=== PATIENT | female | born 1985 | race Caucasian/White ===

== ENCOUNTER 2016-12-03 13:01 | Emergency (ER) | payer OTHER ==
[~2016-12-03] VITALS: Ht 165.1 cm; Wt 65.3 kg
[~2016-12-03 13:01] MED LIST: ABILIFY5 MG; AMOXICILLIN500 MG PO; ATORVASTATIN CA40 MG PO; CARBIDOPA/LEVO1 EACH PO; CYCLOBENZAPRINE10 MG PO; CYMBALTA60 MG PO; DULERA 100 MCG/13 GM IH; ENULOSE10 GM/15 M PO; FENTANYL1 EAC1 TD; FENTANYL1 EAC5 TD; FLEXERIL5 MG PO; GLUCOSAMINE HC500 MG PO; GLUCOSAMINE1000 MG PO; HYDROXYZINE HCL25 MG PO; IRON18 MG PO; LINZESS290 MCG PO; LIPITOR40 MG PO; LITHIUM CARBON150 MG PO; LYRICA100 MG PO; LYRICA150 MG PO; METHOCARBAMOL750 MG PO; MIRAPEX0.25 MG PO; NAPROSYN-EC500 MG PO; NAPROSYN500 MG PO; NAPROXEN500 MG PO; NICOTINE PATCH1 EAC2 TD; NOHOMEMEDS; OMEPRAZOLE40 M1 PO; OXYCODONE HCL5 MG PO; PREDNISONE20 MG PO; PROTONIX20 MG PO; QVAR 80 MCG IN7.3 GM IH; REQUIP1 MG PO; REQUIP4 MG PO; ROPINIROLE HCL0.5 MG PO; ROPINIROLE HCL2 MG PO; SINEMET 25-1001 EACH PO; TORADOL10 MG PO; TROKENDI XR100 MG PO; TYLENOL WITH C1 EACH PO; ULTRAM50 MG PO; VALIUM5 MG PO; VENTOLIN HFA18 GM IH; VOLTAREN75 MG PO; ZANTAC150 MG PO; ZITHROMAX250 MG PO
[2016-12-03 14:31] LABS: HEMATOCRIT 41.4 % (36.0-46.0); MCH 29.8 PG (29.0-34.0); MCHC 33.6 G/DL (30.0-36.0); MCV 88.8 FL (83-99); MEAN PLAT.VOLUME 8.5 uM^3 (9.5-12.4); PLATELET COUNT 301 K/uL (156-360); RBC DIS.WIDTH-CV 12.8 % (11.8-14.6); RBC DIS.WIDTH-SD 41.4 % (39-53); RED BLOOD COUNT 4.66 M/uL (3.80-5.20); WHITE BLOOD COUNT 14.4 K/uL (4.1-10.2)
[2016-12-03 14:36] LABS: CHLORIDE 105 mEq/L (99-109); POTASSIUM 4.2 mEq/L (3.7-5.4); SODIUM 138 mEq/L (136-147)
[2016-12-03 14:39] LABS: GLUCOSE 88 mg/dL (70-99)
[2016-12-03 14:40] LABS: ANION GAP 9 MEQ/L (2-14)
[2016-12-03 14:41] LABS: TOTAL BILIRUBIN 0.4 mg/dL (0.0-1.0)
[2016-12-03 14:42] LABS: ALKALINE PHOSPHATASE 75 IU/L (3-129); GFR ESTIMATE (CALCULATED) > 59 mL/min/
[2016-12-03 14:43] LABS: UREA NITROGEN (BUN) 11 mg/dL (9-23)
[2016-12-03 14:45] LABS: CREATINE KINASE 64 IU/L (1-294)
[2016-12-03 15:53] LABS: QUANTITATIVE HCG < 4.0 MIU/ML
[2016-12-03 15:56] LABS: TROP-I INTERPRETATION NEGATIVE; TROPONIN-I < 0.01 ng/mL (0.0-0.30)
[2016-12-03 16:55] LABS: ADD MIUA? YES; BILIRUBIN NEGATIVE; BLOOD NEGATIVE; COLOR YELLOW ((YELLOW)); GLUCOSE (STRIP) NEGATIVE; KETONES NEGATIVE; LEUKOCYTES NEGATIVE; NITRITE NEGATIVE; PROTEIN (STRIP) NEGATIVE; SPECIFIC GRAVITY 1.009 (1.000-1.030); UROBILINOGEN 0.2 MG/DL (0.2-1.0)
[2016-12-03 17:00] LABS: BACTERIA RARE /HPF; EPITHELIAL CELLS 1+ /HPF; HYALINE CASTS 0-5 /LPF; MUCUS 1+ /LPF; RED BLOOD CELLS 0-5 /HPF (0-5); UCUL ADDED? NO; WHITE BLOOD CELLS 0-5 /HPF (0-5)
[2016-12-03 17:50] VITALS: BP 94/65
== END 2016-12-03 17:51 | disposition home or self-care (01) ==
LOC: EME 13:01
PROVIDERS: Nurse Practitioner Family; Physician Assistant
PROC: 08QPXZZ Repair Left Upper Eyelid, External Approach (ICD-10-PCS; principal; 2016-12-03)
DX: R55 Syncope and collapse (principal); S09.90XA Unspecified injury of head, initial encounter; S01.112A Laceration without foreign body of left eyelid and periocular area, initial encounter; W19.XXXA Unspecified fall, initial encounter; Y92.512 Supermarket, store or market as the place of occurrence of the external cause; F17.200 Nicotine dependence, unspecified, uncomplicated; Z88.5 Allergy status to narcotic agent; Z91.048 Other nonmedicinal substance allergy status; Z88.8 Allergy status to other drugs, medicaments and biological substances; J44.9 Chronic obstructive pulmonary disease, unspecified
CPT/HCPCS: 70450; 71020; 80053; 81003; 82550; 84484; 84702; 85027; 93005; 99281; 99285; J7030

== ENCOUNTER 2017-08-15 09:32 | Emergency (ER) | payer SELFPAY ==
[~2017-08-15] VITALS: Ht 165.1 cm; Wt 57.9 kg
[2017-08-15 10:33] LABS: HEMOGLOBIN 14.7 G/DL (11.9-15.5); MCH 31.1 PG (29.0-34.0); MCV 88.8 FL (83-99); PLATELET COUNT 275 K/uL (156-360); RBC DIS.WIDTH-CV 11.7 % (11.8-14.6); RBC DIS.WIDTH-SD 37.4 % (39-53); RED BLOOD COUNT 4.73 M/uL (3.80-5.20); WHITE BLOOD COUNT 10.3 K/uL (4.1-10.2)
[2017-08-15 10:43] LABS: ALBUMIN 4.3 g/dL (3.2-4.8); CHLORIDE 105 mEq/L (99-109); POTASSIUM 4.6 mEq/L (3.7-5.4); SODIUM 136 mEq/L (136-147)
[2017-08-15 10:45] LABS: GLUCOSE 111 mg/dL (70-99)
[2017-08-15 10:46] LABS: TOTAL PROTEIN 7.1 g/dL (6.4-8.3)
[2017-08-15 10:47] LABS: TOTAL BILIRUBIN 0.5 mg/dL (0.0-1.0)
[2017-08-15 10:49] LABS: ALKALINE PHOSPHATASE 76 IU/L (3-129); CREATININE 0.9 mg/dL (0.6-1.3); GFR ESTIMATE (CALCULATED) > 59 mL/min/
[2017-08-15 10:50] LABS: UREA NITROGEN (BUN) 18 mg/dL (9-23)
[2017-08-15 10:51] LABS: AST (GOT) 14 IU/L (2-34)
[2017-08-15 10:52] LABS: ALT (GPT) 7 IU/L (3-49)
[2017-08-15 10:58] LABS: QUANTITATIVE HCG < 4.0 MIU/ML
[2017-08-15] MEDS ORDERED: OXYCODONE-ACET1 EACH PO (11:15)
[2017-08-15] MEDS ORDERED: CYCLOBENZAPRINE10 MG PO (11:16)
[2017-08-15 13:02] LABS: APPEARANCE SL.HAZY ((CLEAR)); BILIRUBIN NEGATIVE; BLOOD LARGE; COLOR YELLOW ((YELLOW)); GLUCOSE (STRIP) NEGATIVE; KETONES 20; LEUKOCYTES NEGATIVE; NITRITE NEGATIVE; PROTEIN (STRIP) 30; SPECIFIC GRAVITY 1.029 (1.000-1.030); UROBILINOGEN 0.2 MG/DL (0.2-1.0)
[2017-08-15 13:07] LABS: BACTERIA RARE /HPF; EPITHELIAL CELLS RARE /HPF; HYALINE CASTS 0-5 /LPF; MUCUS TRACE /LPF; RED BLOOD CELLS TNTC /HPF (0-5); UCUL ADDED? YES; WHITE BLOOD CELLS 0-5 /HPF (0-5)
[2017-08-15] MEDS ORDERED: TORADOL10 MG PO (14:20)
[2017-08-15] MEDS ORDERED: FLOMAX0.4 MG PO (14:20)
[2017-08-15] MEDS ORDERED: ZOFRAN ODT4 MG PO (14:20)
[2017-08-15 14:48] VITALS: BP 124/79
== END 2017-08-15 14:50 | disposition home or self-care (01) ==
LOC: EME 09:32
DX: N83.201 Unspecified ovarian cyst, right side (principal); N13.2 Hydronephrosis with renal and ureteral calculous obstruction; M79.7 Fibromyalgia; J44.9 Chronic obstructive pulmonary disease, unspecified; G25.81 Restless legs syndrome; E78.5 Hyperlipidemia, unspecified; F41.9 Anxiety disorder, unspecified; F32.9 Major depressive disorder, single episode, unspecified; Z90.710 Acquired absence of both cervix and uterus; F17.200 Nicotine dependence, unspecified, uncomplicated; Z88.5 Allergy status to narcotic agent; Z88.8 Allergy status to other drugs, medicaments and biological substances
CPT/HCPCS: 74176; 80053; 81003; 84702; 85027; 87086; 99281; 99285; J1885; J2270; J2405; J7030; J7040

== ENCOUNTER 2017-12-26 13:51 | Emergency (ER) | payer SELFPAY ==
[~2017-12-26] VITALS: Ht 165.1 cm; Wt 56.8 kg
[~2017-12-26 13:51] MED LIST changes: +FLOMAX0.4 MG PO; +OXYCODONE-ACET1 EACH PO; +ZOFRAN ODT4 MG PO
[2017-12-26 16:46] VITALS: BP 114/74
== END 2017-12-26 16:46 | disposition home or self-care (01) ==
LOC: EME 13:51
DX: S83.91XA Sprain of unspecified site of right knee, initial encounter (principal); X58.XXXA Exposure to other specified factors, initial encounter; G89.29 Other chronic pain; F17.200 Nicotine dependence, unspecified, uncomplicated
CPT/HCPCS: 73564; 99281; 99284